=== PATIENT | female | born 1960 | race Caucasian/White ===

== ENCOUNTER 2023-07-31 13:49 | Emergency (ER) | payer MEDICAID ==
[2023-07-31] MEDS ORDERED: Sodium Chloride 0.9% 10 ML Syringe FLUSH PRN (14:39)
[2023-07-31] MEDS ORDERED: Aluminum Hydroxide/Magnesium Hydroxide/Simethicone Susp 30 ML Cup PO ONE (14:42)
== END 2023-07-31 14:45 | disposition left against medical advice (07) ==
LOC: JD.ED 13:49
DX: R10.10 Upper abdominal pain, unspecified (principal); K21.9 Gastro-esophageal reflux disease without esophagitis
CPT/HCPCS: 93005; 93010; 99283; 99284